=== PATIENT | female | born 1945 | race Caucasian/White ===

== ENCOUNTER → 2017-04-08 | Outpatient (CLI) | payer OTHER | LOC: CIMAGING 14:24 | PROVIDERS: ATTEND Internal Medicine | DX: R91.1 Solitary pulmonary nodule (principal); R05 Cough | CPT/HCPCS: 71020-PO ==

== ENCOUNTER → 2017-04-11 | Outpatient (CLI) | payer OTHER | LOC: CIMAGING 11:19 | PROVIDERS: ATTEND Internal Medicine | DX: R91.8 Other nonspecific abnormal finding of lung field (principal); I25.10 Atherosclerotic heart disease of native coronary artery without angina pectoris; K44.9 Diaphragmatic hernia without obstruction or gangrene; I70.0 Atherosclerosis of aorta | CPT/HCPCS: 71250-PO ==

== ENCOUNTER → 2017-11-26 | Outpatient (CLI) | payer OTHER | LOC: BMCIMAGING 13:43 | PROVIDERS: ATTEND Obstetrics & Gynecology | DX: Z12.31 Encounter for screening mammogram for malignant neoplasm of breast (principal) ==

== ENCOUNTER → 2018-12-01 | Outpatient (CLI) | payer OTHER | LOC: BMCIMAGING 14:38 | PROVIDERS: ATTEND Obstetrics & Gynecology | DX: Z12.31 Encounter for screening mammogram for malignant neoplasm of breast (principal) ==

== ENCOUNTER → 2018-12-24 | Outpatient (CLI) | payer OTHER | LOC: CIMAGING 09:03 | PROVIDERS: ATTEND Internal Medicine | DX: J06.9 Acute upper respiratory infection, unspecified (principal); J84.9 Interstitial pulmonary disease, unspecified | CPT/HCPCS: 71046-PO ==

== ENCOUNTER → 2019-03-30 | Outpatient (CLI) | payer OTHER | LOC: CIMAGING 13:28 | PROVIDERS: ATTEND Internal Medicine | DX: R05 Cough (principal); J21.9 Acute bronchiolitis, unspecified | CPT/HCPCS: 71250-PO ==